=== PATIENT | male | born 1995 | race Caucasian/White ===

== ENCOUNTER 2020-10-01 22:36 | Emergency (ER) | payer OTHER ==
[~2020-10-01 22:36] MED LIST: AZITHROMYCIN250 MG PO
[2020-10-02] MEDS ORDERED: CYCLOBENZAPRINE10 MG PO (01:05)
[2020-10-02] MEDS ORDERED: DICLOFENAC SODI75 MG PO (01:05)
== END 2020-10-02 01:54 | disposition home or self-care (01) ==
LOC: FER 22:36
DX: S33.5XXA Sprain of ligaments of lumbar spine, initial encounter (principal); X58.XXXA Exposure to other specified factors, initial encounter; Y92.89 Other specified places as the place of occurrence of the external cause; Y99.0 Civilian activity done for income or pay
CPT/HCPCS: 96372; 99283; J1040; J1885